=== PATIENT | female | born 1945 | race African-American/Black ===

== ENCOUNTER 2020-08-28 21:44 | Observation (INO) | payer OTHER ==
--- OUTSIDE RECORDS SUMMARY | 2020-08-28 21:47 | XMS REPORT | Continuity of Care Document ---
:[address] [facility] t Address [address] [place] [address] Care Team Providers Name Role Phone SYLVAIN Attending Clinician Unavailable Chris JOHNSON Attending Clinician JOCELIN Attending Clinician Unavailable MD Sim NARAYAN Attending Clinician Unavailable RONDA Attending Clinician Unavailable LINNETTE Attending Clinician Unavailable CHAVA Attending Clinician Unavailable MD Kallie BOND Attending Clinician Unavailable KIA Attending Clinician Unavailable SYLVAIN Admitting Clinician Unavailable TANNER DOTY Admitting Clinician Unavailable RONDA Admitting Clinician Unavailable MD Kallie BOND Admitting Clinician Unavailable LINNETTE Admitting Clinician Unavailable Problems This patient has no known problems. Allergies, Adverse Reactions, Alerts Allergy Allergy Status Severity Reaction(s) Onset Inactive Treating Comm ents Source Name Type Date Date Clinician Sulfa Adverse Active rash [facility] Medications Ordered Filled Start Stop Current Ordering Indication Dosage Frequency Signature Comments Components Source Medication Medication Date Date Medication? Clinician (SIG) Name Name Diflucan Diflucan Yes Laina as [facility] 04[facility]06 [facility] Clarithromy Clarithromy 2019- No Laina [address] [facility] kelly kelly 04-06 [facility]00 [facility] Eliquis 5 Eliquis 5 2017- Yes Laina one [facility] mg mg 9-06 [facility] Coreg Coreg Yes Laina as [facility] Bumetanide Bumetanide Yes Lania as [facility] Aspirin Aspirin Yes Laina [address] [facility] Clopidogrel Clopidogrel Yes Laina [address] [facility] Bisulfate Bisulfate [facility] Entresto Entresto Yes Laina [address] [facility] Corlanor Corlanor Yes Laina one [facility] 5mg 5mg [facility] Colchicine Colchicine Yes Laina TAKE [address] [facility] TABLET BY [facility] EVERY DAY l [facility] ent Clin[facility] Osteo Osteo Yes Laina [address] [address] Bi-Flex Bi-Flex Millender with a Gaby kes - Regular Regular meal [facility] Strength Strength l Outpati ent Clinics Procedures This patient has no known procedures. Encounters Start End Encounter Admission Attending Care Care Encounter Source Date/Time Date/Time Type Type Clinicians Facility Department ID 2020-08-13 2020-08-13 Outpatient SYLVAIN [facility] [id number] 00:00:00 00:00:00 JHOANA [address] 2020-07-31 2020-07-31 Emergency [facility] [id number] 14:33:00 19:27:00 Isael Corona [id number] Gamaliel [id number] [place] [id number] 2020-07-29 2020-07-30 Outpatient SYLVAIN [facility] [id number] 00:00:00 00:00:00 JHOANA [address] 2020-07-28 2020-07-28 Outpatient JOCELIN KADI [facility] [id number] 00:00:00 00:00:[address] 2020-07-25 2020-07-25 Outpatient SYLVAIN [facility] [id number] [place] 00:00:00 00:00:00 JHOANA [address] 2020-07-09 2020-07-09 Outpatient INCAVO, [facility] [id number] [place] 00:00:00 00:00:00 JHOANA [address] 2020-07-09 2020-07-09 Outpatient INCAVO, [facility] [id number] 00:00:00 00:00:00 JHOANA [address] 2020-07-09 2020-07-09 Outpatient INCAVO, [facility] [id number] [place] 00:00:00 00:00:00 JHOANA [address] 2020-05-27 2020-05-27 Outpatient [facility] [id number] 2020-04-23 2020-04-23 Outpatient [facility] [id number] 00:00:00 00:00:[address] 2020-04-02 2020-04-02 Outpatient [facility] [id number] [place] 00:00:00 00:00:[address] 2020-02-14 2020-02-14 Outpatient [facility] [id number] [facility] 2020-02-14 2020-02-14 Outpatient [facility] [id number] [facility] 2020-01-14 2020-01-14 Outpatient [facility] [id number] [facility] 2020-01-11 2020-01-11 Outpatient [facility] [id number] [facility] 2020-01-01 2020-01-01 Outpatient [facility] [id number] [facility] 2019-11-23 2019-11-23 Outpatient THEKDI, [facility] [id number] 00:00:00 00:00:00 LUANNE [address] 2019-08-14 2019-08-14 Outpatient ANGLIN, [facility] [id number] 00:00:00 00:00:00 FEIBI [address] 2019-08-14 2019-08-14 Outpatient THEKDI, [facility] [id number] 00:00:00 00:00:00 LUANNE [address] 2019-08-08 2019-08-08 Outpatient THEKDI, [facility] [id number] [place] 00:00:00 00:00:00 LUANNE [address] 2019-08-07 2019-08-07 Outpatient CHAVA, [facility] [id number] [place] 00:00:00 00:00:00 NIGEL [address] 2019-08-02 2019-08-02 Outpatient THEKDI, [facility] [id number] [place] 00:00:00 00:00:00 LUANNE [address] 2019-07-27 2019-07-28 Outpatient ANGLIN, [facility] [id number] [place] 00:00:00 00:00:00 FEIBI [address] 2019-07-19 2019-07-19 Outpatient ANGLIN, [facility] [id number] [place] 00:00:00 00:00:00 FEIBI [address] 2019-05-23 2019-05-23 Outpatient ANGLIN, [facility] [id number] [place] 00:00:00 00:00:00 FEIBI [address] 2019-05-23 2019-05-23 Outpatient ANGLIN, [facility] [id number] [place] 00:00:00 00:00:00 FEIBI [address] 2018-12-29 2018-12-29 Outpatient ADAM, [facility] [id number] [place] 00:00:00 00:00:00 SHILPAN [address] 2018-04-12 2018-04-12 [facility] [id number] [facility] 13:32:00 13:32:00 [facility] Clin[facility] 2018-04-06 2018-04-06 [facility] [id number] 10:45:00 10:45:00 [facility] Clin[facility] 2017-12-05 2017-12-05 Outpatient Serene Neri [id number] 09:45:00 09:45:00 [facility] Clinics 2017-11-21 2017-11-21 Outpatient Serene Neri [id number] 15:45:00 15:45:00 [facility] Clinics Results Test Description Test Time Test Comments Results Result Comments Source SARS-CoV-2 (COVID-19) RNA [Presence] in Respiratory sp ecimen by 2020-07-25 18:19:23 ANDREIA with probe detection Test Item Value Reference Range Interpretation Comme nts SARS-CoV-2 (COVID-19) RNA [Presence] in Respiratory Not detected No t-Detected specimen by ANDREIA with probe detection (test code = 92091-9) Whether patient is employed in a healthcare setting (test code = 12711-0) Whether the patient has symptoms related to condition of interest (test code = 39682-2) Patient was hospitalized because of this condition (test code = 35005-7) Whether the patient was admitted to intensive care unit (ICU) for condition of interest (test code = 45217-5) Whether patient resides in a congregate care setting (test code = 29183-3) SARS coronavirus 2 RNA [Presence] in Respiratory specimen by ANDREIA with probe [id number] 15:02:16 Test Item Value Reference Range Interpretation Comments SARS coronavirus 2 RNA Not detected Not-Detected [Presence] in Respiratory specimen by ANDREIA with probe detection (test code = 59000-8)
[2020-08-28 22:30] LABS: Protime INR 1.08
[2020-08-28 22:39] LABS: Absolute Lymphocytes (CBC) 2.1 K/uL (0.7-4.9); Hematocrit 32.5 % (36.0-45.0); Lymphocytes % 30.1 % (15.3-44.8); MPV 10.5 fL (7.6-11.3); RBC Red Blood Cell Count 4.41 M/uL (3.86-4.86)
[2020-08-28 22:43] LABS: ALT/SGPT 19 U/L (12-78); AST/SGOT 20 U/L (15-37); Albumin 4.3 g/dL (3.4-5.0); Alkaline Phosphatase 91 U/L (45-117); BUN Blood Urea Nitrogen 56 mg/dL (7-18); Bicarbonate 24 mmol/L (21-32); Bilirubin Direct < 0.1 mg/dL (0-0.2); Bilirubin Total 0.4 mg/dL (0.2-1.0); Glucose Level 90 mg/dL (74-106); Lipase 213 U/L (73-393); Magnesium 2.5 mg/dL (1.8-2.4); NT PRO-BNP 1235 pg/mL (<450); Potassium 3.9 mmol/L (3.5-5.1); Protein, Total 8.8 g/dL (6.4-8.2); Sodium Level 136 mmol/L (136-145); Troponin (Emerg Dept Use Only) < 0.02 ng/mL (0.0-0.045)
--- NOTE | 2020-08-28 23:10 | ER ---
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 Coronavirus screen: Client denies ak2 travel out of the [place] in the last 14 days. At this time, the client does not indicate any symptoms associated with coronavirus-19. Ebola Screen: Patient negative for fever greater than or equal to 101.5 degrees Fahrenheit, and additional compatible Ebola Virus Disease symptoms Patient denies exposure to infectious person. Patient denies travel to an Ebola-affected area in the 21 days before illness onset. No symptoms or risks identified at this time. Initial Sepsis Screen: Does the patient meet any 2 criteria? No. Patient's initial sepsis screen is negative. Does the patient have a suspected source of infection? No. Patient's initial sepsis screen is negative. Risk Assessment: Do you want to hurt yourself or someone else? Patient reports no desire to harm self or others. Onset of symptoms was August 28, 2020. 22:09 Method Of Arrival: EMS: [facility] ak2 22:09 Acuity: YOVANY 3 ak2 Triage Assessment: 22:12 General: Appears in no apparent distress. Behavior is calm, cooperative. Pain: ak2 Complains of pain in chest. Historical: - Allergies: 22:12 Sulfa (Sulfonamide Antibiotics); ak2 - Immunization history:: Adult Immunizations up to date. - Social history:: Smoking status: unknown. - Family history:: not pertinent. Screenin:13 Abuse screen: Denies threats or abuse. Denies injuries from another. Nutritional ak2 screening: No deficits noted. Tuberculosis screening: No symptoms or risk factors identified. Fall Risk None identified. Assessment: 08/29 01:10 General: Appears in no apparent distress. report called to rn. horton2 Vital Signs: 08/28 22:09 BP 126 / 85; Pulse 97; Resp 20; Temp 97.9; Pulse Ox 100% on 2 lpm NC; Weight 91.63 kg; ak2 Height 5 ft. 3 in. (160.02 cm); 23:30 Weight 84.46 kg; rr5 08/29 01:00 BP 119 / 61; Pulse 89; Resp 18; Pulse Ox 100% on 2 lpm NC; ak2 08/28 23:30 Body Mass Index 32.98 (84.46 kg, 160.02 cm) rr5 ED Course: 08/28 21:54 Patient arrived in ED. ca1 21:56 Ruy Goldberg MD is Attending Physician. malik 22:09 Spenser Kinsey is Primary Nurse. ak2 22:12 Triage completed. ak2 22:12 Arm band placed on right wrist. ak2 22:13 Patient has correct armband on for positive identification. ak2 22:13 No provider procedures requiring assistance completed. ak2 22:41 XRAY Chest (1 view) In Process Unspecified. EDMS 23:03 Mathew Yap MD is Hospitalizing Provider. [facility] 08/29 01:28 Primary Nurse role handed off by Spenser Kinsey rr5 Administered Medications: 08/28 23:35 Drug: Heparin (DE-Bolus No thrombolytic) - HEParin 60 units/kg {Co-Signature: colleen feliz (Spenser Kinsey).} Route: IVP; Site: right antecubital; 08/29 00:35 Follow up: Response: No adverse reaction rr5 08/28 23:35 Drug: Aspirin 162 mg Route: PO; rr5 08/29 00:35 Follow up: Response: No adverse reaction rr5 08/28 23:36 Drug: NS 0.9% 1000 ml Route: IV; Rate: 75 ml/hr; Site: right antecubital; rr5 08/29 01:20 Follow up: Response: No adverse reaction; IV Status: Infusion continued upon admission; rr5 IV Intake: 150ml 08/28 23:36 Drug: Pepcid (famotidine) 20 mg Route: IVP; Site: right antecubital; rr5 08/29 00:35 Follow up: Response: No adverse reaction rr5 08/28 23:39 Drug: Heparin (DE Drip) 12 units/kg/hr - (HEParin 29258 units, D5W 500 ml) rr5 {Co-Signature: colleen (Spenser Kinsey).} Route: IV; Rate: calculated rate; Site: right antecubital; 08/29 01:19 Follow up: Response: No adverse reaction; IV Status: Infusion continued upon admission rr5 Intake: 01:20 IV: 150ml; Total: 150ml. rr5 Outcome: 08/28 23:10 Decision to Hospitalize by Provider. [facility] 08/29 01:18 Ad[facility] to [facility] ak2 Condition: good 01:19 Patient left the ED. ak2 01:28 Patient left the ED. rr5 Signatures: Dispatcher [employer] EDRuy Ovalles MD MD cha Roque, Raymond RN RN rr5 Rebeka Levine RN RN ca1 [place], Anthony ak2 Spenser horton2
--- NOTE | 2020-08-28 23:10 | EDPHYS ---
Physician Documentation [facility] Name: Jeri Mccormick Age: 74 yrs Sex: Female : 1945 Arrival Date: 08/28/2020 Time: 21:54 Bed 7 Private MD: ED Physician Ruy Goldberg HPI: 08/28 22:51 This 74 yrs old Black Female presents to ER via EMS with complaints of sob, hx chf and malik knee replacement. 22:51 The patient presents with pain, that is acute. The complaints affect the lateral aspect malik of right knee, medial aspect of right knee and right knee. Context: The problem was sustained at home, resulted from an unknown cause. Onset: The symptoms/episode began/occurred just prior to arrival, today. Modifying factors: The symptoms are alleviated by nothing. the symptoms are aggravated by nothing. Associated signs and symptoms: Pertinent positives: weakness. The patient has shortness of breath with light activity. Onset: The symptoms/episode began/occurred. The patient's shortness of breath has no apparent modifying factors. Associated signs and symptoms: The patient has no apparent associated signs or symptoms. Historical: - Allergies: 22:12 Sulfa (Sulfonamide Antibiotics); ak2 - Immunization history:: Adult Immunizations up to date. - Social history:: Smoking status: unknown. - Family history:: not pertinent. ROS: 22:51 Constitutional: Negative for fever, chills, and weight loss, Eyes: Negative for injury, malik pain, redness, and discharge, ENT: Negative for injury, pain, and discharge, Neck: Negative for injury, pain, and swelling, Cardiovascular: Negative for chest pain, palpitations, and edema, Abdomen/GI: Negative for abdominal pain, nausea, vomiting, diarrhea, and constipation, Back: Negative for injury and pain, : Negative for injury, bleeding, discharge, and swelling, MS/Extremity: Negative for injury and deformity, Skin: Negative for injury, rash, and discoloration, Neuro: Negative for headache, weakness, numbness, tingling, and seizure, Psych: Negative for depression, anxiety, suicide ideation, homicidal ideation, and hallucinations, Allergy/Immunology: Negative for hives, rash, and allergies, Endocrine: Negative for neck swelling, polydipsia, polyuria, polyphagia, and marked weight changes, Hematologic/Lymphatic: Negative for swollen nodes, abnormal bleeding, and unusual bruising. 22:51 Respiratory: Positive for shortness of breath, at rest. Exam: 22:51 Constitutional: This is a well developed, well nourished patient who is awake, alert, malik and in no acute distress. Head/Face: Normocephalic, atraumatic. Eyes: Pupils equal round and reactive to light, extra-ocular motions intact. Lids and lashes normal. Conjunctiva and sclera are non-icteric and not injected. Cornea within normal limits. Periorbital areas with no swelling, redness, or edema. ENT: Nares patent. No nasal discharge, no septal abnormalities noted. Tympanic membranes are normal and external auditory canals are clear. Oropharynx with no redness, swelling, or masses, exudates, or evidence of obstruction, uvula midline. Mucous membranes moist. Neck: Trachea midline, no thyromegaly or masses palpated, and no cervical lymphadenopathy. Supple, full range of motion without nuchal rigidity, or vertebral point tenderness. No Meningismus. Chest/axilla: Normal chest wall appearance and motion. Nontender with no deformity. No lesions are appreciated. Cardiovascular: Regular rate and rhythm with a normal S1 and S2. No gallops, murmurs, or rubs. Normal PMI, no JVD. No pulse deficits. Respiratory: Lungs have equal breath sounds bilaterally, clear to auscultation and percussion. No rales, rhonchi or wheezes noted. No increased work of breathing, no retractions or nasal flaring. Abdomen/GI: Soft, non-tender, with normal bowel sounds. No distension or tympany. No guarding or rebound. No evidence of tenderness throughout. Back: No spinal tenderness. No costovertebral tenderness. Full range of motion. Skin: Warm, dry with normal turgor. Normal color with no rashes, no lesions, and no evidence of cellulitis. Neuro: Awake and alert, GCS 15, oriented to person, place, time, and situation. Cranial nerves II-XII grossly intact. Motor strength 5/5 in all extremities. Sensory grossly intact. Cerebellar exam normal. Normal gait. Psych: Awake, alert, with orientation to person, place and time. Behavior, mood, and affect are within normal limits. 22:51 Musculoskeletal/extremity: ROM: intact in all extremities, full active range of motion, full passive range of motion, Circulation is intact in all extremities. Sensation intact. Compartment Syndrome exam of affected extremity: is normal. Joints: All joints are normal except the right knee displays pain at rest, DVT Exam: negative Homans' sign noted on exam, no appreciated bluish discoloration, no erythema, no increased warmth, pain, swelling, tenderness. Vital Signs: 22:09 BP 126 / 85; Pulse 97; Resp 20; Temp 97.9; Pulse Ox 100% on 2 lpm NC; Weight 91.63 kg; ak2 Height 5 ft. 3 in. (160.02 cm); 23:30 Weight 84.46 kg; rr5 08/29 01:00 BP 119 / 61; Pulse 89; Resp 18; Pulse Ox 100% on 2 lpm NC; ak2 08/28 23:30 Body Mass Index 32.98 (84.46 kg, 160.02 cm) rr5 MDM: 08/28 21:57 Patient medically screened. [facility] 23:00 Differential diagnosis: Anxiety Reaction asthma, Bronchitis pulmonary edema, Pulmonary malik Embolism Sepsis. Antibiotic administration: Not indicated. The patient's Wells Deep Vein Thrombosis Score was calculated as follows: Imm/Surg in last 4 wks (1.5 Pts) Total Score: 0-2 Pts- Low Risk. The patient's pulmonary embolism risk score was calculated as follows: patient has experienced immobilization or surgery in the last four weeks (1.5 Pts) Total Score: 0-2 points. This patient was found to be at low risk for a pulmonary embolism by using the Well's assessment criteria. Immunization status: Pneumococcal vaccine: Influenza vaccine: Data reviewed: vital signs, nurses notes, lab test result(s), EKG, radiologic studies, plain films. Data interpreted: teletypesetter monitor: rate is 97 beats/min, rhythm is regular. Test interpretation: by ED physician or midlevel provider: ECG, plain radiologic studies. Counseling: I had a detailed discussion with the patient and/or guardian regarding: the historical points, exam findings, and any diagnostic results supporting the discharge/admit diagnosis, lab results, radiology results, the need for further work-up and treatment in the hospital. 08/28 22:02 Order name: Basic Metabolic Panel; Complete Time: 23:01 [facility] 08/28 22:02 Order name: CBC with Diff; Complete Time: 22:43 [facility] 08/28 22:02 Order name: LFT's; Complete Time: 23:01 [facility] 08/28 22:02 Order name: Magnesium; Complete Time: 23:01 [facility] 08/28 22:02 Order name: NT PRO-BNP; Complete Time: 23:01 [facility] 08/28 22:02 Order name: PT-INR; Complete Time: 22:43 [facility] 08/28 22:02 Order name: Troponin (emerg Dept Use Only); Complete Time: 23:01 [facility] 08/28 22:02 Order name: XRAY Chest (1 view) [facility] 08/28 22:02 Order name: Lipase; Complete Time: 23:01 [facility] 08/28 23:20 Order name: SARS-COV-2 RT PCR; Complete Time: 23:20 EDFL 08/28 23:29 Order name: Ptt, Activated rr 08/28 22:02 Order name: EKG; Complete Time: 22:04 [facility] 08/28 22:02 Order name: Cardiac monitoring; Complete Time: 23:36 [facility] 08/28 22:02 Order name: EKG - Nurse/Tech; Complete Time: 23:36 [facility] 08/28 22:02 Order name: IV Saline Lock; Complete Time: 23:36 [facility] 08/28 22:02 Order name: Labs collected and sent; Complete Time: 23:36 [facility] 08/28 22:02 Order name: O2 Per Protocol; Complete Time: 23:36 [facility] 08/28 22:02 Order name: O2 Sat Monitoring; Complete Time: 23:36 [facility] 08/29 00:10 Order name: CONS Physician Consult EDMS Administered Medications: 23:35 Drug: Heparin (RI-Bolus No thrombolytic) - HEParin 60 units/kg {Co-Signature: ak2 rr5 (Spenser Kinsey).} Route: IVP; Site: right antecubital; 08/29 00:35 Follow up: Response: No adverse reaction rr5 08/28 23:35 Drug: Aspirin 162 mg Route: PO; rr5 08/29 00:35 Follow up: Response: No adverse reaction rr5 08/28 23:36 Drug: NS 0.9% 1000 ml Route: IV; Rate: 75 ml/hr; Site: right antecubital; rr5 08/29 01:20 Follow up: Response: No adverse reaction; IV Status: Infusion continued upon admission; rr5 IV Intake: 150ml 08/28 23:36 Drug: Pepcid (famotidine) 20 mg Route: IVP; Site: right antecubital; rr5 08/29 00:35 Follow up: Response: No adverse reaction rr5 08/28 23:39 Drug: Heparin (RI Drip) 12 units/kg/hr - (HEParin 83609 units, D5W 500 ml) rr5 {Co-Signature: ak2 (Spenser Kinsey).} Route: IV; Rate: calculated rate; Site: right antecubital; 08/29 01:19 Follow up: Response: No adverse reaction; IV Status: Infusion continued upon admission rr5 Disposition: 08/28/20 23:10 Hospitalization ordered by Mathew Yap for Inpatient Admission. Preliminary diagnosis are Dyspnea - s/p knee relacement, Obesity, unspecified, Unspecified combined systolic (congestive) and diastolic (congestive) heart failure - history of. - Bed requested for Telemetry/MedSurg (observation). - Status is Inpatient Admission. rr5 - Condition is Stable. - Problem is new. - Symptoms have improved. Signatures: Dispatcher [employer] EDFL Anita Arguello RN RN mw Anderson, Corey, MD MD cha Roszak, Josh, PA PA jr8 Roque, Raymond, RN RN rr5 Spenser Kinsey Corrections: (The following items were deleted from the chart) 08/28 22:24 22:04 CORONAVIRUS+MR.LAB.BRZ ordered. [facility] EDFL 23:59 23:10 Hospitalization Ordered by Mathew Yap MD for Inpatient Admission. Preliminary diagnosis is Dyspnea - s/p knee relacement; Obesity, unspecified; Unspecified combined systolic (congestive) and diastolic (congestive) heart failure - history of. Bed requested for Telemetry/MedSurg (observation). Status is Inpatient Admission. Condition is Stable. Problem is new. Symptoms have improved. [facility] 08/29 01:19 08/28 23:59 08/28/2020 23:10 Hospitalization Ordered by Mathew Yap MD for Inpatient ak2 Admission. Preliminary diagnosis is Dyspnea - s/p knee relacement; Obesity, unspecified; Unspecified combined systolic (congestive) and diastolic (congestive) heart failure - history of. Bed requested for Telemetry/MedSurg (observation). Status is Inpatient Admission. Condition is Stable. Problem is new. Symptoms have improved. 08/29 01:28 01:19 08/28/2020 23:10 Hospitalization Ordered by Mathew Yap MD for Inpatient rr5 Admission. Preliminary diagnosis is Dyspnea - s/p knee relacement; Obesity, unspecified; Unspecified combined systolic (congestive) and diastolic (congestive) heart failure - history of. Bed requested for Telemetry/MedSurg (observation). Status is Inpatient Admission. Condition is Stable. Problem is new. Symptoms have improved. ak2
[2020-08-28] MEDS ORDERED: HEPARIN/D5W 25,000 UNIT/500 ML BAG IV ONE (23:42)
[2020-08-28] MEDS ORDERED: FAMOTIDINE 20 MG/2 ML VIAL IV ONE (23:42)
[2020-08-28] MEDS ORDERED: HEPARIN 5000 UNIT/ML 1 ML VIAL ONE (23:42)
[2020-08-28] MEDS ORDERED: NA CHLORIDE 0.9% 500 ML ONE (23:43)
[2020-08-28] MEDS ORDERED: ASPIRIN 81 MG CHEWABLE TABLET ONE (23:43)
--- NOTE | 2020-08-29 00:37 | P.HP ---
Certification for Inpatient Patient admitted to: Inpatient With expected LOS: >2 Midnights Patient will require the following post-hospital care: None Practitioner: I am a practitioner with admitting privileges, knowledge of patient current condition, hospital course, and medical plan of care. Services: Services provided to patient in accordance with Admission requirements found in Title 42 Section 412.3 of the Code of Federal Regulations Patient History Date of Service: 08/29/20 Primary Care Provider: Yamilka Reason for admission: dysnpea, chest pain History of Present Illness: Ms. Mccormick is a 74 yo F with CHF + defibrillator, HTN, h/o DVT 2018, knee replacement surgery 5 weeks ago here today with chest pain and SOB. She says the SOB is worse with talking. She says she has been getting around well since the surgery but also said that she hasn't been moving too much recently. She says she only has tenderness in her R knee, but on palpation she has calf pain as well. Denies cough, fever, hemoptysis. BUN 56, Cr 1.58, GFR 39. BNP 1235. CXR wnl. Started on heparin drip in the ED. Allergies Sulfa (Sulfonamide Antibiotics) Allergy (Verified 10/16/13 15:01) Rash Home Medications: Aspirin Chewable [Aspirin Chewable*] 1 tab PO DAILY 10/16/13 Bumetanide [Bumex] 1 tab PO DAILY 10/16/13 carvediloL [Coreg*] 12.5 mg PO BID 10/16/13 Atorvastatin Calcium [Lipitor*] 10 mg PO BEDTIME #30 tab 10/18/13 Clopidogrel Bisulfate [Plavix*] 75 mg PO DAILY #30 tablet 10/18/13 Colchicine 0.6 mg PO DAILY 04/26/17 - Past Medical/Surgical History Diabetic: No -: HTN -: CHF -: Pacemaker/defibrillator -: Hyperlipidemia -: h/o DVT -: hysterectomy -: appy -: carpal tunnel repair -: abd sugery x2 to remove scar tissue -: knee surg -: tubal ligation -: thyroid surgery - Family History Mother -: Stroke, Cancer Notes: CERVICAL CA Brother -: Lung disease, Stroke, Kidney disease Sister -: Lung disease - Social History Smoking Status: Never smoker Alcohol use: No CD- Drugs: No Caffeine use: No Place of Residence: Home Review of Systems 10-point ROS is otherwise unremarkable Respiratory: Shortness of Breath, SOB with Excertion Cardiovascular: Chest Pain Musculoskeletal: Leg Pain Physical Examination - Physical Exam General: Alert, In no apparent distress HEENT: Atraumatic, PERRLA, Mucous membr. moist/pink, EOMI, Sclerae nonicteric Neck: Supple, 2+ carotid pulse no bruit, No LAD, Without JVD or thyroid abnormality Respiratory: Clear to auscultation bilaterally, Normal air movement Cardiovascular: Regular rate/rhythm, Normal S1 S2 Gastrointestinal: Normal bowel sounds, No tenderness Musculoskeletal: No clubbing, No contractures, No erythema, No warmth, Swelling, Tenderness Integumentary: No rashes, Other (scar is healing well) Neurological: Normal speech, Normal strength at 5/5 x4 extr, Normal tone, Sensation intact, Normal affect Lymphatics: No axilla or inguinal lymphadenopathy - Studies Laboratory Data (last 24 hrs) 08/28/20 20:10: APTT 30.3 08/28/20 20:10: PT 12.4, INR 1.08 08/28/20 20:10: WBC 7.00, Hgb 10.4 L, Hct 32.5 L, Plt Count 203 08/28/20 20:10: Sodium 136, Potassium 3.9, BUN 56 H, Creatinine 1.58 H, Glucose 90, Magnesium 2.5 H, Total Bilirubin 0.4, AST 20, ALT 19, Alkaline Phosphatase 91, Lipase 213 Assessment and Plan - Problems (Diagnosis) (1) History of DVT of lower extremity Current Visit: Yes Status: Chronic (2) ELOINA (acute kidney injury) Current Visit: Yes Status: Acute (3) Dyspnea Current Visit: Yes Status: Acute Qualifiers: Dyspnea type: shortness of breath Qualified Code(s): R06.02 - Shortness of breath; R06.00 - Dyspnea, unspecified; R06.01 - Orthopnea (4) CHF (congestive heart failure) Onset Date: 04/27/17 Current Visit: No Status: Chronic Qualifiers: Heart failure type: unspecified Heart failure chronicity: chronic Qualified Code(s): I50.9 - Heart failure, unspecified (5) Hypertension Onset Date: 04/27/17 Current Visit: No Status: Chronic Qualifiers: Hypertension type: essential hypertension Qualified Code(s): I10 - Essential (primary) hypertension - Plan V/Q scan in the AM, bilateral LE US in the AM continue heparin drip continue O2 as needed, pain management as needed nephrology consulted, continue gentle IVF hydration anemia workup pending will reconcile and continue home medications Discharge Plan: Home Plan to discharge in: 48 Hours - Advance Directives Does patient have a Living Will: No Does patient have a Durable POA for Healthcare: No - Code Status/Comfort Care Code Status Assessed: Yes (full code ) Critical Care: No Time Spent Managing Pts Care (In Minutes): 70
[2020-08-29] MEDS ORDERED: NA CHLORIDE 0.9% 1,000 ML IV SCH (01:33)
[2020-08-29] MEDS ORDERED: ACETAMINOPHEN 500 MG TAB PO PRN (01:33)
[2020-08-29] MEDS ORDERED: MORPHINE 2 MG/ML SYR IV PRN (01:33)
[2020-08-29] MEDS ORDERED: HEPARIN/D5W 25,000 UNIT/500 ML BAG IV SCH (01:33)
[2020-08-29] MEDS ORDERED: ONDANSETRON 4 MG/2 ML VIAL IV PRN (01:33)
[2020-08-29 01:47] VITALS: BMI 34.7
[2020-08-29] MEDS: HYDROCODONE/APAP 5/325 MG TAB PO PRN ×3 (03:30→14:29)
[2020-08-29] MEDS ORDERED: MORPHINE 2 MG/ML SYR IV ONE (04:28)
[2020-08-29 04:39] LABS: Hematocrit 26.6 % (36.0-45.0); MPV 9.9 fL (7.6-11.3); RBC Red Blood Cell Count 3.63 M/uL (3.86-4.86)
[2020-08-29 05:10] LABS: Albumin 3.4 g/dL (3.4-5.0); Bilirubin Total 0.4 mg/dL (0.2-1.0); Magnesium 2.5 mg/dL (1.8-2.4); Phosphorus 3.9 mg/dL (2.5-4.9); Potassium 3.6 mmol/L (3.5-5.1); Protein, Total 7.1 g/dL (6.4-8.2); Thyroid Stimulating Hormone 0.42 uIU/mL (0.360-3.740)
[2020-08-29 06:01] LABS: Ferritin 959.4 ng/mL (8-388); Transferrin 166 mg/dL (200-360); Troponin I < 0.02 ng/mL (0.0-0.045)
[2020-08-29 06:53] LABS: Protime INR 1.19
--- NOTE | 2020-08-29 07:36 | P.CNS ---
Date of Consult: 08/29/20 Primary Care Provider: Yamilka Chief Complaint: dysnpea, chest pain Allergies Sulfa (Sulfonamide Antibiotics) Allergy (Verified 08/29/20 02:34) Rash Home Medications: Aspirin Chewable [Aspirin Chewable*] 1 tab PO DAILY 10/16/13 Bumetanide [Bumex] 1 tab PO DAILY 10/16/13 carvediloL [Coreg*] 12.5 mg PO BID 10/16/13 Atorvastatin Calcium [Lipitor*] 10 mg PO BEDTIME #30 tab 10/18/13 Clopidogrel Bisulfate [Plavix*] 75 mg PO DAILY #30 tablet 10/18/13 Colchicine 0.6 mg PO DAILY 04/26/17 - Past Medical/Surgical History Diabetic: No -: HTN -: CHF -: Pacemaker/defibrillator -: Hyperlipidemia -: h/o DVT -: hysterectomy -: appy -: carpal tunnel repair -: abd sugery x2 to remove scar tissue -: knee surg -: tubal ligation -: thyroid surgery - Family History Mother Medical History: Stroke, Cancer Notes: CERVICAL CA Brother Medical History: Lung disease, Stroke, Kidney disease Sister Medical History: Lung disease - Social History Smoking Status: Unknown if ever smoked Alcohol use: No CD- Drugs: No Caffeine use: No Place of Residence: Home Physical Examination Temp Pulse Resp BP Pulse Ox 96.9 F 79 18 133/64 100 08/29/20 04:00 08/29/20 04:00 08/29/20 05:02 08/29/20 04:00 08/29/20 05:02 Laboratory Data (last 24 hrs) 08/28/20 20:10: APTT 30.3 08/28/20 20:10: PT 12.4, INR 1.08 08/28/20 20:10: WBC 7.00, Hgb 10.4 L, Hct 32.5 L, Plt Count 203 08/28/20 20:10: Sodium 136, Potassium 3.9, BUN 56 H, Creatinine 1.58 H, Glucose 90, Magnesium 2.5 H, Total Bilirubin 0.4, AST 20, ALT 19, Alkaline Phosphatase 91, Lipase 213
--- NOTE | 2020-08-29 07:39 | EKG ---
Test Date: 2020-08-28 Test Time: 21:44:25 Communication Skills Instructor: HAYLEY MEASUREMENT RESULTS: Intervals: Rate: 106 ME: 134 QRSD: 146 QT: 400 QTc: 531 [place]: P: 57 ME: 134 QRS: -76 T: 93 INTERPRETIVE STATEMENTS: Atrial-sensed ventricular-paced rhythm Abnormal ECG Compared to ECG 04/26/2017 14:18:22 Sinus rhythm no longer present Electronically Signed On 08-29-20 07:39:14 CDT by Chong Ferris
[2020-08-29 08:00] LABS: Anisocytosis 1+; Blood Morphology Comment NOTED (NOT SEEN); Platelet Estimate ADEQ
[2020-08-29 08:01] LABS: Hypochromasia 1+
--- NOTE | 2020-08-29 08:33 | RAD REPORT ---
EXAM DESCRIPTION: US - Extrem Venous W Compress Oneal - 08/29/2020 7:22 am CLINICAL HISTORY: leg pain Bilateral leg edema and swelling. COMPARISON: Extremity Venous Uni Ltd dated 11/17/2017 TECHNIQUE: Real-time sonographic interrogation of the left and right lower extremity deep venous sys tems was performed. FINDINGS: Normal compressibility, flow augmentation, phasic flow and spontaneous flow is identified in both the left and right lower extremity deep venous systems. IMPRESSION: No sonographic evidence of left or right lower extremity deep venous thrombosis.
--- NOTE | 2020-08-29 08:34 | P.CNS ---
Date of Consult: 08/29/20 Reason for Consult: ELOINA Requesting Physician: chelsie fulton Primary Care Provider: Yamilka Chief Complaint: dysnpea, chest pain History of Present Illness: Ms. Mccormick is a 74 yo F with CHF + defibrillator, HTN, h/o DVT 2018, knee replacement surgery 5 weeks ago here today with chest pain and SOB. She says the SOB is worse with talking. She says she has been getting around well since the surgery but also said that she hasn't been moving too much recently. She says she only has tenderness in her R knee, but on palpation she has calf pain as well. Denies cough, fever, hemoptysis. BUN 56, Cr 1.58, GFR 39. BNP 1235. CXR wnl. Started on heparin drip in the ED. 22:51 This 74 yrs old Black Female presents to ER via EMS with complaints of sob, hx chf and malik knee replacement. 22:51 The patient presents with pain, that is acute. The complaints affect the lateral aspect malik of right knee, medial aspect of right knee and right knee. Context: The problem was sustained at home, resulted from an unknown cause. Onset: The symptoms/episode began/occurred just prior to arrival, today. Modifying factors: The symptoms are alleviated by nothing. the symptoms are aggravated by nothing. Associated signs and symptoms: Pertinent positives: weakness. The patient has shortness of breath with light activity. Onset: The symptoms/episode began/occurred. The patient's shortness of breath has no apparent modifying factors. Associated signs and symptoms: The patient has no apparent associated signs or symptoms. Allergies Sulfa (Sulfonamide Antibiotics) Allergy (Verified 08/29/20 02:34) Rash Home medications list reviewed: Yes Home Medications: Allopurinol 100 mg PO DAILY 08/29/20 Bumetanide 2 mg PO BID 08/29/20 Iron Polysaccharide Complex [Polysaccharide Iron] 150 mg PO DAILY #30 capsule 08/29/20 Metoprolol Succinate [Toprol Xl*] 50 mg PO BID 08/29/20 Sacubitril/Valsartan [Entresto 49 mg-51 mg Tablet] 1 tab PO BID 08/29/20 Sennosides [Senokot] 17.2 mg PO BID #120 tablet 08/29/20 - Past Medical/Surgical History Diabetic: No -: HTN -: CHF -: Pacemaker/defibrillator -: Hyperlipidemia -: h/o DVT -: hysterectomy -: appy -: carpal tunnel repair -: abd sugery x2 to remove scar tissue -: knee surg -: tubal ligation -: thyroid surgery - Family History Mother Medical History: Stroke, Cancer Notes: CERVICAL CA Brother Medical History: Lung disease, Stroke, Kidney disease Sister Medical History: Lung disease - Social History Smoking Status: Unknown if ever smoked Alcohol use: No CD- Drugs: No Caffeine use: No Place of Residence: Home Review of Systems 10-point ROS is otherwise unremarkable General: Weakness, Malaise Neurological: Weakness Physical Examination Temp Pulse Resp BP Pulse Ox 96.7 F L 71 18 119/59 L 100 08/29/20 08:00 08/29/20 08:00 08/29/20 08:10 08/29/20 08:00 08/29/20 08:10 General: Oriented x3, Cooperative HEENT: Normocephalic Neck: Supple Respiratory: Clear to auscultation bilaterally, Stridor Cardiovascular: No edema, Regular rate/rhythm Gastrointestinal: Soft and benign, Non-distended Musculoskeletal: No clubbing, No contractures Integumentary: No rashes, No cyanosis Neurological: Normal speech Laboratory Data (last 24 hrs) 08/28/20 20:10: APTT 30.3 08/28/20 20:10: PT 12.4, INR 1.08 08/28/20 20:10: WBC 7.00, Hgb 10.4 L, Hct 32.5 L, Plt Count 203 08/28/20 20:10: Sodium 136, Potassium 3.9, BUN 56 H, Creatinine 1.58 H, Glucose 90, Magnesium 2.5 H, Total Bilirubin 0.4, AST 20, ALT 19, Alkaline Phosphatase 91, Lipase 213 Imagings Data: EXAM DESCRIPTION: CT - Chest For Pe Angio - 08/29/2020 7:51 am CLINICAL HISTORY: Chest pain. Shortness of breath COMPARISON: THORAX W CONTRAST dated 10/17/2013 TECHNIQUE: CT angiogram of the pulmonary arteries was performed with MIP. All CT scans are performed using dose optimization technique as appropriate and may include automated exposure control or mA/KV adjustment according to patient size. FINDINGS: No evidence of pulmonary thromboembolism. No acute aortic finding demonstrated. Mild linear atelectasis in both lung bases. The lungs are clear of acute infiltrate. No significant pericardial or pleural fluid. No concerning bony finding. IMPRESSION: No evidence of pulmonary thromboembolism. Mild linear atelectasis in both lung bases. Conclusions/Impression: ELOINA improving CKD III -No NSAIDs -Continue IVF Hypermagnesemia HTN with CKD/ CHF -Continue Metoprolol Diastolic CHF, chronic -Continue Entresto Anemia in chronic illness Iron deficiency -Continue iron supplementation Upper airway stridor due to vocal cord paralysis Thank you kindly for the consultation.
--- NOTE | 2020-08-29 08:41 | RAD REPORT ---
EXAM DESCRIPTION: RAD - Chest Single View - 08/28/2020 10:41 pm CLINICAL HISTORY: COUGH Chest pain. COMPARISON: Chest Single View dated 04/26/2017; Chest Pa And Lat (2 Views) dated 08/05/2016; CHEST PA AND LAT 2 VIEW dated 02/12/2015; CHEST PA AND LAT 2 VIEW dated 04/02/2014 FINDINGS: Portable technique limits examination quality. The lungs are grossly clear. The heart is normal in size. No displaced fractures.Multi lead pacer/def ibrillator device is present. A portion of the left lateral lower lung parenchyma is obscured by the pacer device. IMPRESSION: No acute intrathoracic process suspected.
[2020-08-29] MEDS ORDERED: POTASSIUM CL SA 10 MEQ TAB PO ONE (09:00)
--- NOTE | 2020-08-29 09:07 | RAD REPORT ---
EXAM DESCRIPTION: CT - Chest For Pe Angio - 08/29/2020 7:51 am CLINICAL HISTORY: Chest pain. Shortness of breath COMPARISON: THORAX W CONTRAST dated 10/17/2013 TECHNIQUE: CT angiogram of the pulmonary arteries was performed with MIP. All CT scans are performed using dose optimization technique as appropriate and may include automated exposure control or mA/KV adjustment according to patient size. FINDINGS: No evidence of pulmonary thromboembolism. No acute aortic finding demonstrated. Mild linear atelectasis in both lung bases. The lungs are clear of acute infiltrate. No significant pericardial or pleural fluid. No concerning bony finding. IMPRESSION: No evidence of pulmonary thromboembolism. Mild linear atelectasis in both lung bases.
--- NOTE | 2020-08-29 13:11 | P.DS ---
Admission Date: 08/29/20 Discharge Date: 08/29/20 Primary Care Provider: Yamilka Disposition: ROUTINE DISCHARGE Discharge Condition: FAIR Reason for Admission: dysnpea, chest pain - Problems (1) Fatigue Current Visit: Yes Status: Acute (2) ELOINA (acute kidney injury) Current Visit: Yes Status: Acute (3) Dyspnea Current Visit: Yes Status: Acute Qualifiers: Dyspnea type: shortness of breath Qualified Code(s): R06.02 - Shortness of breath; R06.00 - Dyspnea, unspecified; R06.01 - Orthopnea (4) Chest pain Onset Date: 04/27/17 Current Visit: No Status: Acute Qualifiers: Chest pain type: unspecified Qualified Code(s): R07.9 - Chest pain, unspecified (5) Chronic diastolic heart failure Current Visit: Yes Status: Acute Brief History of Present Illness: 74-year-old woman with a history of congestive heart failure, status post AICD, hypertension, history of DVT in 2018, recent knee replacement surgery presented to the emergency department with a complaint of chest pain and shortness of breath. Patient reports shortness of breath worse with talking. She also reported reduced physical activity since her knee surgery. Chest x-ray done in the emergency department did not show any acute disease. Patient not hypoxic, given her history of DVT, the was a concern for pulmonary embolism from recent surgery. BMP showed elevated creatinine compared to baseline indicating ELOINA. Patient was hospitalized for further management. Hospital Course: Patient placed under observation. Troponin trended negative. Patient hydrated with IV normal saline for ELOINA. Her serum creatinine improved. Patient was placed on heparin drip briefly for suspected pulmonary embolism. CTA thorax was done which was negative for pulmonary embolism. PE ruled out. Patient is currently asymptomatic except fatigue with ambulation. Noted her hemoglobin Is low at 8.4. Iron studies show was mildly low iron levels. Patient prescribed iron supplementation. IV fluid discontinued. She is deemed stable for discharge. Vital Signs/Physical Exam: Temp Pulse Resp BP Pulse Ox 97 F 74 16 122/58 L 98 08/29/20 12:00 08/29/20 12:00 08/29/20 12:00 08/29/20 12:00 08/29/20 12:00 General: Alert, In no apparent distress HEENT: Mucous membr. moist/pink Neck: Supple, JVD not distended Respiratory: Clear to auscultation bilaterally, Normal air movement Cardiovascular: No edema, Regular rate/rhythm, Normal S1 S2 Gastrointestinal: Soft and benign, Non-distended, No tenderness Musculoskeletal: No swelling Neurological: Normal speech, Normal strength at 5/5 x4 extr Laboratory Data at Discharge: WBC 6.20 K/uL (4.3-10.9) 08/29/20 04:20 Hgb 8.4 g/dL (12.0-15.0) L 08/29/20 04:20 Hct 26.6 % (36.0-45.0) L D 08/29/20 04:20 Plt Count 163 K/uL (152-406) 08/29/20 04:20 PT 13.7 SECONDS (9.5-12.5) H 08/29/20 05:51 INR 1.19 08/29/20 05:51 APTT 106.5 SECONDS (24.3-36.9) H* 08/29/20 12:32 Sodium 138 mmol/L (136-145) 08/29/20 04:20 Potassium 3.6 mmol/L (3.5-5.1) 08/29/20 04:20 BUN 53 mg/dL (7-18) H 08/29/20 04:20 Creatinine 1.41 mg/dL (0.55-1.3) H 08/29/20 04:20 Glucose 104 mg/dL (74-106) 08/29/20 04:20 Phosphorus 3.9 mg/dL (2.5-4.9) 08/29/20 04:20 Magnesium 2.5 mg/dL (1.8-2.4) H 08/29/20 04:20 Total Bilirubin 0.4 mg/dL (0.2-1.0) 08/29/20 04:20 AST 16 U/L (15-37) 08/29/20 04:20 ALT 16 U/L (12-78) 08/29/20 04:20 Alkaline Phosphatase 73 U/L (45-117) 08/29/20 04:20 Troponin I < 0.02 ng/mL (0.0-0.045) 08/29/20 12:32 Triglycerides 129 mg/dL (<150) 08/29/20 04:20 Cholesterol 183 mg/dL (<200) 08/29/20 04:20 HDL Cholesterol 43 mg/dL (40-60) 08/29/20 04:20 Cholesterol/HDL Ratio 4.26 08/29/20 04:20 Lipase 213 U/L (73-393) 08/28/20 20:10 Home Medications: Allopurinol 100 mg PO DAILY 08/29/20 Bumetanide 2 mg PO BID 08/29/20 Iron Polysaccharide Complex [Polysaccharide Iron] 150 mg PO DAILY #30 capsule 08/29/20 Metoprolol Succinate [Toprol Xl*] 50 mg PO BID 08/29/20 Sacubitril/Valsartan [Entresto 49 mg-51 mg Tablet] 1 tab PO BID 08/29/20 Sennosides [Senokot] 17.2 mg PO BID #120 tablet 08/29/20 New Medications: Iron Polysaccharide Complex [Polysaccharide Iron] 150 mg PO DAILY #30 capsule Sennosides [Senokot] 17.2 mg PO BID #120 tablet Diet: AHA Activity: Ad helena Followup: NONE,NONE [Primary Care Provider] -
[2020-08-29 15:40] VITALS: O2SAT 94
[2020-08-29 16:30] VITALS: BP 122/67; TEMP 97.5
[2020-08-29] MEDS ORDERED: ENSURE HIGH PROTEIN 237 ML CAN PO SCH (21:00)
--- NOTE | 2020-08-30 09:47 | EKG ---
Test Date: 2020-08-29 Test Time: 03:48:49 [employer] Supervisor: WES MEASUREMENT RESULTS: Intervals: Rate: 80 [place]: 150 QRSD: 144 QT: 444 QTc: 512 [place]: P: 27 [place]: 150 QRS: -50 T: 128 INTERPRETIVE STATEMENTS: Electronic ventricular pacemaker Compared to ECG 08/28/2020 21:44:25 Atrial-sensed ventricular-paced complex(es) or rhythm no longer present Electronically Signed On 08-30-20 09:43:53 CDT by Chong Ferris
== END 2020-08-29 18:27 | disposition home or self-care (01) ==
LOC: ER 21:44 → INTOOBSV 08-29 00:03 → 4TH 08-29 00:03
PROVIDERS: ADMIT Internal Medicine; ATTEND Internal Medicine
DX: R07.9 Chest pain, unspecified (principal); N17.9 Acute kidney failure, unspecified; I13.0 Hypertensive heart and chronic kidney disease with heart failure and stage 1 through stage 4 chronic kidney disease, or unspecified chronic kidney disease; I50.32 Chronic diastolic (congestive) heart failure; R53.83 Other fatigue; R06.02 Shortness of breath; Z20.822 Contact with and (suspected) exposure to COVID-19; R06.01 Orthopnea; Z95.810 Presence of automatic (implantable) cardiac defibrillator; Z86.718 Personal history of other venous thrombosis and embolism; Z96.651 Presence of right artificial knee joint; E78.5 Hyperlipidemia, unspecified; N18.30 Chronic kidney disease, stage 3 unspecified; E83.41 Hypermagnesemia; D63.1 Anemia in chronic kidney disease; J38.00 Paralysis of vocal cords and larynx, unspecified
CPT/HCPCS: 93005 ×2; 85025 ×2; 80048; 36415; 83735 ×2; 84100; 85610 ×2; 80061; 80076; 85730 ×4; 84443; 84484 ×3; 84439; 82728; 83690; 83540; 80053; 83880; 84466; 71275; 71045; 93970; 97161; 94760 ×2; U0003; Q9967; J1644 ×2; J2270 ×2; J7040; J7030; G0378 ×2; 96365; 96366; 96375; 99285